=== PATIENT | male | born 1995 | race Caucasian/White ===

== ENCOUNTER 2018-01-18 09:36 | Emergency (ER) | payer OTHER ==
[~2018-01-18] VITALS: Ht 170.2 cm; Wt 77.1 kg
--- NOTE | ~2018-01-18 | EKG ---
[place] [address] [employer] [facility] [place] [address] ELECTROCARDIOGRAM REPORT Name: KRISSY BEAN Room #: [id number] Admission: 01/18/18 Attend Phys: Discharge: Date of : [birth year] Report #: [id number] THIS REPORT FOR: //name// [facility] ED Test Date: 2018-01-18 Test Time: 10:08:29 Pat Name: KRISSY BEAN Department: Room: Gender: Examination Grader: Josefa FLOREZ : 1995 Requested By: Omar Munson Order Number: [id number] MD: Tommy Ta Measurements Intervals [place] Rate: 91 P: 55 VA: 163 QRS: 25 QRSD: 99 T: 52 QT: 346 QTc: 426 Interpretive Statements Sinus rhythm ST elevation suggests early repolarization Baseline wander in lead(s) V5,V6 No previous ECG available for comparison Electronically Signed On 01-18-2018 11:38:12 CDT by Tommy Ta [email or web address] <ELECTRONICALLY SIGNED> By: Tommy Ta MD 01/18/18 1138 1008 1008 Tommy Ta MD /YOGI
[2018-01-18 10:29] LABS: HEMATOCRIT 50.9 % (42.0-52.0); HEMOGLOBIN 17.6 gm/dL (14.0-18.0); MCH 30.2 pg (26.0-34.0); MCHC 34.6 g/dL (28.0-37.0); MCV 87.3 fL (80.0-100.0); RBC 5.83 mil/uL (4.50-6.00); RDW 13.4 % (10.5-14.5); WBC 11.8 thou/uL (4.0-11.0)
[2018-01-18 10:37] LABS: CREATININE 0.9 mg/dL (0.7-1.3); POTASSIUM 4.1 mmol/L (3.5-5.1)
[2018-01-18 10:43] LABS: ALBUMIN 4.1 g/dL (3.4-5.0); TOTAL BILIRUBIN 0.6 mg/dL (<0.1-1.0); TOTAL PROTEIN 7.7 g/dL (6.4-8.2)
[2018-01-18 11:15] LABS: URINE BILIRUBIN NEGATIVE (Negative); URINE BLOOD NEGATIVE (Negative); URINE CLARITY CLEAR; URINE COLOR YELLOW; URINE GLUCOSE-RANDOM* NEGATIVE (Negative); URINE KETONES NEGATIVE (Negative); URINE LEUKOCYTES-REFLEX NEGATIVE (Negative); URINE NITRITE-REFLEX NEGATIVE (Negative); URINE PROTEIN (DIPSTICK) NEGATIVE (Negative); URINE SPECIFIC GRAVITY >= 1.030 (1.005-1.035); URINE UROBILINOGEN 0.2 E.U./dl (0.2-1.0)
[2018-01-18] MEDS ORDERED: ONDANSETRON HCL4 M2 PO (12:00)
[2018-01-18] MEDS ORDERED: PEPCID20 MG PO (12:00)
[2018-01-18] MEDS ORDERED: MIRALAX17 GM PO (12:01)
[2018-01-18 12:28] VITALS: BP 95/49
== END 2018-01-18 12:30 | disposition home or self-care (01) ==
LOC: ER 09:36
PROVIDERS: Physician Assistant
DX: K59.00 Constipation, unspecified (principal); R11.2 Nausea with vomiting, unspecified